=== PATIENT | male | born 1970 | race Caucasian/White ===

== ENCOUNTER 2021-01-03 12:41 | Emergency (ER) | payer OTHER ==
[~2021-01-03] VITALS: Ht 182.9 cm; Wt 120.2 kg
[2021-01-03] MEDS ORDERED: PROZAC20 M1 PO (12:55)
[2021-01-03] MEDS ORDERED: TRAMADOL 50 MG50 MG PO (12:56)
[2021-01-03] MEDS ORDERED: ALPRAZOLAM 0.50.5 M1 PO (12:56)
[2021-01-03] MEDS ORDERED: IBUPROFEN 800800 M1 PO (14:25)
[2021-01-03] MEDS ORDERED: HYDROCODON-ACE1 EAC7 PO (14:27)
[2021-01-03 15:06] VITALS: BP 124/68
== END 2021-01-03 15:07 | disposition home or self-care (01) ==
LOC: M.ERS 12:41
DX: S63.591A Other specified sprain of right wrist, initial encounter (principal); M75.31 Calcific tendinitis of right shoulder; G89.29 Other chronic pain; E11.9 Type 2 diabetes mellitus without complications; Z79.899 Other long term (current) drug therapy; X50.1XXA Overexertion from prolonged static or awkward postures, initial encounter; Y93.89 Activity, other specified; Y92.89 Other specified places as the place of occurrence of the external cause; Y99.9 Unspecified external cause status

== ENCOUNTER 2021-02-28 16:54 | Emergency (ER) | payer OTHER ==
[~2021-02-28] VITALS: Ht 182.9 cm; Wt 115.7 kg
[~2021-02-28 16:54] MED LIST: ALPRAZOLAM 0.50.5 M1 PO; HYDROCODON-ACE1 EAC7 PO; IBUPROFEN 800800 M1 PO; PROZAC20 M1 PO; TRAMADOL 50 MG50 MG PO
[2021-02-28 17:38] LABS: ABSOLUTE BASOPHILS 0.1 thou/uL (0.0-0.2); ABSOLUTE EOSINOPHILS 0.1 thou/uL (0.0-0.7); ABSOLUTE LYMPHOCYTES 2.5 thou/uL (0.8-5.3); ABSOLUTE MONOCYTES 0.8 thou/uL (0.0-1.2); ABSOLUTE NEUTROPHILS 7.9 thou/uL (1.6-8.1); BASOPHILS 1.1 %; EOSINOPHILS 0.8 %; HEMATOCRIT 50.6 % (42.0-52.0); HEMOGLOBIN 16.9 gm/dL (14.0-18.0); LYMPHOCYTES 21.6 %; MCH 30.4 pg (26.0-34.0); MCHC 33.5 g/dL (28.0-37.0); MCV 90.7 fL (80.0-100.0); MONOCYTES 7.4 %; NUCLEATED RBCS 0 /100WBC; PLATELET COUNT* 358 thou/uL (150-400); POLYS 69.1 %; RBC 5.58 mil/uL (4.50-6.00); RDW-CV 13.9 % (10.5-14.5); WBC 11.4 thou/uL (4.0-11.0)
[2021-02-28] MEDS ORDERED: CLEOCIN HCL150 M1 PO (18:03)
[2021-02-28] MEDS ORDERED: SSD CREAM 1% 5050 GM TOP (18:03)
[2021-02-28] MEDS ORDERED: HYDROCODON-ACE1 EAC7 PO (18:06)
[2021-02-28 18:18] VITALS: BP 139/86
== END 2021-02-28 18:19 | disposition home or self-care (01) ==
LOC: M.ERS 16:54
PROVIDERS: Nurse Practitioner Psychiatric/Mental Health
DX: T24.201A Burn of second degree of unspecified site of right lower limb, except ankle and foot, initial encounter (principal); T31.0 Burns involving less than 10% of body surface; E11.9 Type 2 diabetes mellitus without complications; F41.9 Anxiety disorder, unspecified; F32.9 Major depressive disorder, single episode, unspecified; Z90.49 Acquired absence of other specified parts of digestive tract; Z79.899 Other long term (current) drug therapy; V29.9XXA Motorcycle rider (driver) (passenger) injured in unspecified traffic accident, initial encounter; Y93.89 Activity, other specified; Y92.89 Other specified places as the place of occurrence of the external cause; Y99.8 Other external cause status

== ENCOUNTER 2021-03-07 12:18 | Emergency (ER) | payer OTHER ==
[~2021-03-07] VITALS: Ht 182.9 cm; Wt 106.6 kg
[~2021-03-07 12:18] MED LIST changes: +CLEOCIN HCL150 M1 PO; +SSD CREAM 1% 5050 GM TOP
[2021-03-07] MEDS ORDERED: IBUPROFEN 800800 M1 PO (14:34)
[2021-03-07] MEDS ORDERED: PERCOCET 5-3251 EACH PO (14:34)
[2021-03-07] MEDS ORDERED: ZOFRAN ODT4 MG PO (14:39)
[2021-03-07 15:12] VITALS: BP 131/73
== END 2021-03-07 15:20 | disposition home or self-care (01) ==
LOC: M.ERS 12:18
DX: S40.011A Contusion of right shoulder, initial encounter (principal); T24.201A Burn of second degree of unspecified site of right lower limb, except ankle and foot, initial encounter; E11.9 Type 2 diabetes mellitus without complications; F41.9 Anxiety disorder, unspecified; F32.9 Major depressive disorder, single episode, unspecified; F17.210 Nicotine dependence, cigarettes, uncomplicated; Z98.890 Other specified postprocedural states; Z90.49 Acquired absence of other specified parts of digestive tract; Z79.2 Long term (current) use of antibiotics; Z79.899 Other long term (current) drug therapy; Z88.0 Allergy status to penicillin; V89.2XXA Person injured in unspecified motor-vehicle accident, traffic, initial encounter; Y93.89 Activity, other specified; Y92.89 Other specified places as the place of occurrence of the external cause; Y99.8 Other external cause status

== ENCOUNTER 2021-07-16 04:47 | Emergency (ER) | payer OTHER ==
[~2021-07-16] VITALS: Ht 182.9 cm; Wt 117.9 kg
[~2021-07-16 04:47] MED LIST changes: +PERCOCET 5-3251 EACH PO; +ZOFRAN ODT4 MG PO
[2021-07-16] MEDS ORDERED: PROZAC 10 MG CA10 MG PO (05:09)
[2021-07-16] MEDS ORDERED: HYDROCODON-ACE1 EAC8 PO (06:50)
[2021-07-16 07:00] VITALS: BP 107/71
== END 2021-07-16 07:01 | disposition home or self-care (01) ==
LOC: M.ERS 04:47
DX: S93.401A Sprain of unspecified ligament of right ankle, initial encounter (principal); S49.91XA Unspecified injury of right shoulder and upper arm, initial encounter; S89.91XA Unspecified injury of right lower leg, initial encounter; E11.9 Type 2 diabetes mellitus without complications; F41.9 Anxiety disorder, unspecified; F32.9 Major depressive disorder, single episode, unspecified; Z98.890 Other specified postprocedural states; Z90.49 Acquired absence of other specified parts of digestive tract; Z79.899 Other long term (current) drug therapy; Z88.0 Allergy status to penicillin; V29.88XA Motorcycle rider (driver) (passenger) injured in other specified transport accidents, initial encounter; Y93.I9 Activity, other involving external motion; Y92.488 Other paved roadways as the place of occurrence of the external cause; Y99.8 Other external cause status